=== PATIENT | male | born 1960 | race Caucasian/White ===

== ENCOUNTER 2017-07-25 17:58 | Emergency (ER) | payer BC ==
--- NOTE | 2017-07-25 19:01 | ED ---
General Adult HPI - General Chief complaint: Recheck/Abnormal Lab/Rx Stated complaint: sent from [facility] Time Seen by Provider: 07/25/17 18:57 Source: patient, RN notes reviewed Mode of arrival: ambulatory Limitations: no limitations - History of Present Illness Initial comments: 57-year-old male presents emergency department with a chief complaint of concern for arterial injury to the left hand. Patient states that 3 days ago at work he hit his hand and he felt a pain in the palmar aspect of his hand. Patient states he woke up the next day he felt like his typical digit with almost shrunken and bruised. Patient states it then returned to normal. Patient states he still feels as if it a little colder and a little discolored compared to the rest of his hand. He states he has some pain to palpation of the palm and finger but denies any actual injury to the finger. Patient went to [facility] and was evaluated for this and he was transferred here due to the CAT scan results and the fact they did not have a vascular surgeon. Patient denies any other injuries at this time. Patient denies any history of this in the past. Patient denies any recent fever, chills, shortness of breath, chest pain, back pain, abdominal pain, nausea vomiting, numbness or tingling, dysuria or hematuria, constipation or diarrhea, headaches or visual changes, or any other current symptoms. - Related Data Home Medications Medication Instructions Recorded Confirmed Cetirizine HCl [Zyrtec] 10 mg PO DAILY 07/25/17 07/25/17 Escitalopram Oxalate [Lexapro] 10 mg PO DAILY 07/25/17 07/25/17 Escitalopram [Lexapro] 20 mg PO DAILY 07/25/17 07/25/17 Levothyroxine Sodium [Synthroid] 125 mcg PO DAILY 07/25/17 07/25/17 Picacho-3 Fatty Acids/Fish Oil [Fish 1 cap PO DAILY 07/25/17 07/25/17 Oil 1,000 mg Softgel] Ubidecarenone [Co Q-10] 100 mg PO DAILY 07/25/17 07/25/17 Allergies Allergy/AdvReac Type Severity Reaction Status Date / Time amoxicillin Allergy Severe Abdominal Verified 07/25/17 19:11 Pain aspirin AdvReac Severe Abdominal Verified 07/25/17 19:11 Pain [id number]-[id number] Reductase AdvReac SHOULDER Verified 07/25/17 19:11 Inhibitor PAIN Review of Systems ROS Statement: Those systems with pertinent positive or pertinent negative responses have been documented in the HPI. ROS Other: All systems not noted in ROS Statement are negative. Past Medical History Past Medical History: COPD History of Any Multi-Drug Resistant Organisms: None Reported Past Surgical History: Back Surgery Past Psychological History: Depression Smoking Status: Current every day smoker Past Alcohol Use History: Rare Past Drug Use History: None Reported General Exam - General Exam Comments Initial Comments: General: The patient is awake and alert, in no distress, and does not appear acutely ill. Neck: The neck is supple, there is no tenderness. Cardiovascular: There is a regular rate and rhythm. No murmur, rub or gallop is appreciated. Respiratory: Lungs are clear to auscultation, respirations are non-labored, breath sounds are equal. No wheezes, stridor, rales, or rhonchi. Musculoskeletal: Sensation intact with 2+ pulses throughout the left upper extremity. Full range of motion of the left hand. He does appear to have some pain to palpation along the left palm. Patient's left finger does have a purple bruise-type appearance. It is mildly cooler touch compared to the rest of the fingers. Capillary refill is intact however delayed. Normal range of motion normal sensation. Neurological: CN II-XII intact, There are no obvious motor or sensory deficits. Coordination appears grossly intact. Speech is normal. Skin: Skin is warm and dry and no rashes or lesions are noted. Psychiatric: Normal mood and affect. Limitations: no limitations Course Vital Signs 07/25/17 18:24 Temperature 97.6 F Pulse Rate 60 Respiratory 17 Rate Blood Pressure 126/60 O2 Sat by Pulse 96 Oximetry - Reevaluation(s) Reevaluation #1: 07/25/17 19:31 Transfer packet was thoroughly reviewed. Medical Decision Making - Medical Decision Making 57-year-old male presents to the emergency department with a chief complaint of what appears to be an ulnar injury to the left hand. Previous CAT scan from here was reviewed that does show that there is a concerning injury for the distal aspect of the ulnar artery. At this time Dr. Bryant on-call vascular surgeon was contacted. At this time Dr. Bryant states that he is unable to do the procedure person would require he recommends transfer to [facility]. [facility] was contacted by elbow does agree to the transfer. Discussed the patient the importance of going to [facility] in the wrist is not going. He states that he will follow-up with private car. We are comfortable with this at this time. All the patient's questions have been answered. He will be discharged to be transferred to [facility] for continued care. Disposition Clinical Impression: Unspecified injury of ulnar artery at wrist and hand level of left arm, initial encounter Disposition: OTHER INSTITUTION NOT DEFINED Condition: Stable Additional Instructions: Go directly to [facility] ER Referrals: Monroe Escalona MD [Primary Care Provider] - 1-2 days - Out of Hospital Transfer - Req. Specs Out of Hospital Transfer - Requested Specifics: Other Emergency Center ([facility])
[2017-07-25 20:46] VITALS: BP 123/78; PULSE 68; RESP 18; TEMP 97.4
== END 2017-07-25 20:36 | disposition other institution (70) ==
LOC: EC 17:58
DX: S65.00 Unspecified injury of ulnar artery at wrist and hand level (principal); F32.9 Major depressive disorder, single episode, unspecified; F17.200 Nicotine dependence, unspecified, uncomplicated; Z79.899 Other long term (current) drug therapy; Z88.0 Allergy status to penicillin; Z88.6 Allergy status to analgesic agent; Z88.8 Allergy status to other drugs, medicaments and biological substances; W22.8XXA Striking against or struck by other objects, initial encounter; Y92.69 Other specified industrial and construction area as the place of occurrence of the external cause; Y99.0 Civilian activity done for income or pay
CPT/HCPCS: 99284